=== PATIENT | male | born 1990 | race African-American/Black ===

== ENCOUNTER 2020-07-13 07:53 | Emergency (ER) | payer OTHER ==
[2020-07-13 08:15] VITALS: BP 116/72; PULSE 59; TEMP 98.6; BMI 25.7
== END 2020-07-13 08:58 | disposition home or self-care (01) ==
LOC: JER 07:53
DX: R05 Cough (principal); R09.81 Nasal congestion; Z11.59 Encounter for screening for other viral diseases
CPT/HCPCS: 99283-25; C9803; U0003

== ENCOUNTER 2021-07-18 07:32 | Emergency (ER) | payer BC, OTHER ==
[2021-07-18 07:35] VITALS: BP 136/72; PULSE 67; TEMP 97.7; BMI 25.7
[2021-07-21 17:08] LABS: SARS-CoV-2 NAA Detected (Not Detected)
== END 2021-07-18 09:09 | disposition home or self-care (01) ==
LOC: JER 07:32
DX: R50.9 Fever, unspecified (principal); R07.0 Pain in throat; Z20.822 Contact with and (suspected) exposure to COVID-19
CPT/HCPCS: 99283-25; C9803; U0003; U0005